=== PATIENT | female | born 1950 | race Caucasian/White ===

== ENCOUNTER 2016-08-29 07:53 | Day surgery (SDC) | payer MEDICARE ==
[~2016-08-29] VITALS: Ht 166.4 cm; Wt 86.0 kg
[~2016-08-29 07:53] MED LIST: 0.9% Sodium Chloride 1,000 ML IV SCH; AMOX500T2 PO; BENZ200C44 PO; CRB200T PO; KLO1T PO; LEVO125T6 PO; LOVA40TA PO; PARO40TA3 PO; PRAM0.122 PO; Sodium Chloride LOK Flush 10 mL Syringe IV PRN; TRIA16.96 NS; fentaNYL-PF 50 mCg/mL 2 mL Inj IVPUSH PRN
[2016-08-29 08:39] VITALS: BP 110/70; PULSE 74; RESP 16; O2SAT 95
[2016-08-29 09:27] VITALS: BP 125/81; PULSE 71; O2SAT 95
[2016-08-29 09:33] VITALS: BP 122/69; PULSE 72; RESP 16; O2SAT 97
[2016-08-29 09:38] VITALS: BP 121/73; PULSE 68; RESP 16; O2SAT 97
--- NOTE | 2016-08-29 19:06 | ENDO ---
[address] [address] ENDOSCOPY PROCEDURE PATIENT: TERENCE PRATT : 1950 MR#: [id number] ADMIT: 08/29/2016 JOB ID: [id number] CORRECTED REPORT: DATE: 08/29/2016 PROCEDURE: Colonoscopy. INDICATIONS: Screening. The patient's ASA classification is 2, Mallampati score is 2. MEDICATIONS: 1. Versed 3 mg. 2. Fentanyl 75 mcg. INSTRUMENT USED: PCF H 190 DL. PREPARATION QUALITY: Good. PROCEDURE DETAILS: After informed consent was obtained, the patient was brought into the GI suite, where she was placed on oxygen via nasal cannula and monitored with continuous pulse oximeter, telemetry, and blood pressure monitoring. A time-out was performed and then she was placed in the left lateral decubitus position and medications were administered for sedation. Digital rectal exam was performed, which was unremarkable. The colonoscope was then inserted into the rectum and advanced under direct visualization to the cecum, which was identified by the presence of the ileocecal valve and appendiceal orifice. Once the cecum was reached, the colonoscope was withdrawn back into the rectum and mucosa and lumen were examined. In the rectum, retroflexion was performed. Following retroflexion, remaining air in the rectum was suctioned, and the procedure was completed. FINDINGS: 1. In the sigmoid colon, there is an approximately 4 mm sessile polyp that was removed with a cold snare. 2. As the colonoscope was withdrawn from the rectum, [id number] size internal hemorrhoids were noted in the anal canal. IMPRESSION: 1. Sigmoid polyp. 2. Internal hemorrhoids. RECOMMENDATIONS: 1. Fiber-rich diet. 2. Repeat colonoscopy in five years. COMPLICATIONS: None. ESTIMATED BLOOD LOSS: Less than 5 mL. Corrected by GS 09/06/16 at 1:37pm DOS
--- NOTE | 2016-09-01 09:33 | PATH ---
SURGICAL PATHOLOGY Attending Physician:Luther Corbin CASE STATUS: Signed Out PATIENT NAME: TERENCE PRATT PID: [id number] : 1950 DATE COLLECTED:08/29/2016 16:22 SPECIMEN: Colon, Polyp CLINICAL HISTORY: 1. SIGMOID POLYP FINAL DIAGNOSIS: 1.SIGMOID COLON POLYP: HYPERPLASTIC POLYP. ICD10 K63.5 GROSS DESCRIPTION: Received one formalin-filled container, labeled with the patient's name and labeled "sigmoid polyp". Specimen consists of a 0.3 x 0.3 x 0.2 cm portion of tissue which is entirely submitted in one cassette. ([facility]:[id number]) MICRO DESCRIPTION: See diagnosis. ICD-9 CODES: CPT CODES: 1: 34011 Electronically Signed Out Claudia Lau MD [facility] Pathology [facility], [place] [address] Technical component performed at [facility], [address] [place] [address] Ave[address], [place], [address]
== END 2016-08-29 23:59 | disposition home or self-care (01) ==
LOC: END 07:53
PROVIDERS: ATTEND Internal Medicine Gastroenterology
DX: Z12.11 Encounter for screening for malignant neoplasm of colon (principal); K63.5 Polyp of colon; K64.8 Other hemorrhoids; E78.5 Hyperlipidemia, unspecified; K21.9 Gastro-esophageal reflux disease without esophagitis; E03.9 Hypothyroidism, unspecified; G40.909 Epilepsy, unspecified, not intractable, without status epilepticus; F41.8 Other specified anxiety disorders; G25.81 Restless legs syndrome; Z87.891 Personal history of nicotine dependence
CPT/HCPCS: 45385; 99153; G0500; J2250; J3010; J7030